=== PATIENT | female | born 1995 | race Caucasian/White ===

== ENCOUNTER → 2016-10-11 | Outpatient (CLI) | payer BC ==
[~2016-10-11] MED LIST: IOPAMIDOL (ISOVUE-300) 100 ML BTL ONE
== END ==
LOC: FIMAGING 17:08
PROVIDERS: ATTEND Nurse Practitioner Adult Health
DX: R10.31 Right lower quadrant pain (principal); R59.0 Localized enlarged lymph nodes; K59.00 Constipation, unspecified
CPT/HCPCS: Q9967

== ENCOUNTER → 2016-12-28 | Outpatient (CLI) | payer BC | LOC: BMCIMAGING 15:02 | PROVIDERS: ATTEND Internal Medicine | DX: K59.00 Constipation, unspecified (principal) ==